=== PATIENT | male | born 1990 | race Caucasian/White ===

== ENCOUNTER 2021-03-17 16:48 | Emergency (ER) | payer MEDICAID ==
[~2021-03-17] VITALS: Ht 185.4 cm; Wt 109.1 kg
[2021-03-17 17:28] VITALS: BP 142/91
[2021-03-17 18:11] LABS: ALANINE AMINOTRANSFERASE 40 U/L (12-78); ALBUMIN 4.7 G/DL (3.4-5.0); ALBUMIN/GLOBULIN RATIO 1.1 (1.1-1.5); ALKALINE PHOSPHATASE 57 IU/L (46-116); AMYLASE 37 U/L (25-115); ANION GAP 13 (8-16); ASPARTATE AMINO TRANSFERASE 20 U/L (10-37); BILIRUBIN,TOTAL 0.5 MG/DL (0.1-1.0); BLOOD UREA NITROGEN 13 MG/DL (7-18); BUN/CREATININE RATIO 13.3 (5.4-32.0); CALCIUM 9.2 MG/DL (8.5-10.1); CHLORIDE 105 MMOL/L (99-107); CREATININE 0.98 MG/DL (0.60-1.10); GLUCOSE 132 MG/DL (70-104); LIPASE 95 U/L (73-393); POTASSIUM 3.3 MMOL/L (3.5-5.1); SODIUM 144 MMOL/L (135-145); TOTAL CARBON DIOXIDE 25.6 MMOL/L (24-32); TOTAL PROTEIN 8.8 G/DL (6.4-8.2); eGFR 90 ML/MIN
[2021-03-17 18:22] LABS: BASOPHILS % (AUTO) 0.2 % (0-1); EOSINOPHILS % (AUTO) 0.2 % (0-6); HEMOGLOBIN 16.5 g/dl (14.0-17.9); LYMPHOCYTES # (AUTO) 0.9 X10'3 (1.1-4.8); LYMPHOCYTES % (AUTO) 7.9 % (21-51); MEAN CORPUSCULAR HEMOGLOBIN 31.3 PG (27.0-31.0); MEAN CORPUSCULAR HGB CONC 33.7 g/dL (33.0-36.5); MEAN CORPUSCULAR VOLUME 92.9 FL (78-98); MEAN PLATELET VOLUME 7.2 FL (7.4-10.4); MONOCYTES # (AUTO) 0.5 X10'3 (0-0.9); MONOCYTES % (AUTO) 4.6 % (2-12); NEUTROPHILS # (AUTO) 9.6 X10'3 (1.8-7.7); NEUTROPHILS % (AUTO) 87.1 % (42-75); PLATELET COUNT 334 X10'3 (140-440); RED BLOOD COUNT 5.27 X10'6 (4.70-6.10); RED CELL DISTRIBUTION WIDTH 13.2 % (11.5-14.5)
[2021-03-17 18:32] LABS: CLARITY,URINE CLOUDY (Clear); COLOR,URINE Yellow (Yellow); PH,URINE 8.5 (4.8-8.0); PROTEIN,URINE 30 mg/dl (Neg); UA COLLECTION TYPE CLN CATCH MIDSTREAM
[2021-03-17 18:33] LABS: GLUCOSE, URINE NEGATIVE (Neg); KETONES,URINE >=160 mg/dl (Neg); LEUKOCYTE ESTERASE ,URINE NEGATIVE (Neg); NITRITES, URINE NEGATIVE (Neg); OCCULT BLOOD,URINE NEGATIVE (Neg); UROBILINOGEN,URINE 0.2 E.U/dL (0.2-1.0)
[2021-03-17 18:40] LABS: RBC,URINE 0-2 /HPF (0-2); WBC,URINE 0-4 /HPF (0-4)
[2021-03-17 18:41] LABS: AMORPHOUS PHOSPHATES 3+; BACTERIA,URINE FEW /HPF (Neg); SQUAMOUS EPITHELIAL CELL,UR FEW /LPF (FEW)
--- NOTE | 2021-03-17 22:07 | NUR ---
pt left due to wait time
== END 2021-03-17 22:07 | disposition left against medical advice (07) ==
LOC: ER 16:49
DX: R10.13 Epigastric pain (principal); Z53.21 Procedure and treatment not carried out due to patient leaving prior to being seen by health care provider
CPT/HCPCS: 36415; 80053; 81001; 82150; 83690; 85025

== ENCOUNTER 2021-08-09 00:29 | Inpatient (IN) | payer MEDICAID ==
[~2021-08-09] VITALS: Ht 185.4 cm; Wt 111.4 kg
[2021-08-09] MEDS ORDERED: normal saline 1000ML IV soln IVB ONE ×2 (00:35→03:05)
[2021-08-09 01:00] LABS: BASOPHILS % (AUTO) 0.2 % (0-1); EOSINOPHILS # (AUTO) 0.1 X10'3 (0-0.9); EOSINOPHILS % (AUTO) 0.5 % (0-6); HEMATOCRIT 47.1 % (42.0-52.0); HEMOGLOBIN 16.5 g/dl (14.0-17.9); LYMPHOCYTES # (AUTO) 1.8 X10'3 (1.1-4.8); LYMPHOCYTES % (AUTO) 12.8 % (21-51); MEAN CORPUSCULAR HEMOGLOBIN 31.4 PG (27.0-31.0); MEAN CORPUSCULAR VOLUME 89.5 FL (78-98); MONOCYTES # (AUTO) 1.2 X10'3 (0-0.9); MONOCYTES % (AUTO) 8.7 % (2-12); NEUTROPHILS % (AUTO) 77.8 % (42-75); PLATELET COUNT 297 X10'3 (140-440); RED BLOOD COUNT 5.26 X10'6 (4.70-6.10); RED CELL DISTRIBUTION WIDTH 12.8 % (11.5-14.5); WHITE BLOOD COUNT 14.1 X10'3 (4.5-11.0)
[2021-08-09 01:11] LABS: D-DIMER 1.24 MG/L FEU (0-0.50)
[2021-08-09 01:15] LABS: ALANINE AMINOTRANSFERASE 522 U/L (12-78); ALBUMIN 3.9 G/DL (3.4-5.0); ALKALINE PHOSPHATASE 88 IU/L (46-116); ANION GAP 13 (8-16); ASPARTATE AMINO TRANSFERASE 407 U/L (10-37); BILIRUBIN,TOTAL 10.2 MG/DL (0.1-1.0); BLOOD UREA NITROGEN 13 MG/DL (7-18); BUN/CREATININE RATIO 15.7 (5.4-32.0); CALCIUM 9.2 MG/DL (8.5-10.1); CHLORIDE 104 MMOL/L (99-107); CREATININE 0.83 MG/DL (0.60-1.10); GLUCOSE 121 MG/DL (70-104); POTASSIUM 3.5 MMOL/L (3.5-5.1); SODIUM 144 MMOL/L (135-145); TOTAL CARBON DIOXIDE 27.4 MMOL/L (24-32); eGFR > 90 ML/MIN
[2021-08-09 01:22] LABS: ETHANOL < 0.010 GM/DL (0.0-0.010); MAGNESIUM 2.5 MG/DL (1.5-2.4)
[2021-08-09 01:43] LABS: ALBUMIN/GLOBULIN RATIO 1.1 (1.1-1.5); TOTAL PROTEIN 7.6 G/DL (6.4-8.2)
[2021-08-09 02:05] LABS: LIPASE 25537 U/L (73-393)
[2021-08-09 02:07] LABS: URINE AMPHETAMINE SCREEN NEGATIVE (Neg); URINE BARBITUATE SCREEN NEGATIVE (Neg); URINE BENZODIAZEPINES SCREEN NEGATIVE (Neg); URINE CANNABINOID SCREEN NEGATIVE (Neg); URINE COCAINE SCREEN NEGATIVE (Neg); URINE METHADONE SCREEN NEGATIVE (Neg); URINE OPIATE SCREEN NEGATIVE (Neg); URINE PHENCYCLIDINE SCREEN NEGATIVE (Neg)
[2021-08-09 02:26] LABS: CLARITY,URINE CLEAR (Clear); GLUCOSE, URINE NEGATIVE (Neg); KETONES,URINE TRACE mg/dl (Neg); LEUKOCYTE ESTERASE ,URINE NEGATIVE (Neg); OCCULT BLOOD,URINE NEGATIVE (Neg); PROTEIN,URINE TRACE mg/dl (Neg)
[2021-08-09 02:27] LABS: COLOR,URINE AMBER (Yellow); NITRITES, URINE NEGATIVE (Neg); UA COLLECTION TYPE URINAL
[2021-08-09 02:33] LABS: HYALINE CASTS 0-3 /LPF (NEGATIVE); MUCUS STRANDS MANY /LPF (Neg)
[2021-08-09 02:35] LABS: FINE GRANULAR CAST 0-3 /LPF (NEGATIVE); RBC,URINE NONE SEEN /HPF (0-2); WBC,URINE 0-4 /HPF (0-4)
[2021-08-09 02:36] LABS: AMORPHOUS PHOSPHATES 1+; SQUAMOUS EPITHELIAL CELL,UR NONE SEEN /LPF (FEW)
[2021-08-09 02:37] LABS: BACTERIA,URINE NONE SEEN /HPF (Neg)
[2021-08-09] MEDS ORDERED: meperidine/PF 50mg/ml syringe IV ONE (03:05)
[2021-08-09] MEDS ORDERED: ondansetron/PF 4mg/2ml inj IV ONE (03:20)
[2021-08-09] MEDS ORDERED: magnesium Cl slow-release 64mg tablet PO PRN (03:30)
[2021-08-09] MEDS ORDERED: morphine 2 MG/ML inj. syringe IV PRN ×2 (03:30)
[2021-08-09] MEDS ORDERED: magnesium 2GM in 50ml NS 50 ML IV PRN (03:30)
[2021-08-09] MEDS ORDERED: ondansetron 4mg rapidly disintigrating tab PO PRN (03:30)
[2021-08-09] MEDS ORDERED: potassium Cl 20 mEq SR tablet PO PRN ×2 (03:30)
[2021-08-09] MEDS ORDERED: potassium CL 10mEq/100ml bag 100 ML IV PRN (03:30)
[2021-08-09] MEDS ORDERED: bisacodyl 10mg suppository rectal RC PRN (03:30)
[2021-08-09] MEDS ORDERED: ondansetron/PF 4mg/2ml inj IV PRN (03:30)
[2021-08-09] MEDS ORDERED: mag hydrox/Alum hydrox/simeth 30ml oral suspension PO PRN (03:30)
[2021-08-09] MEDS ORDERED: acetaminophen 650mg rectal suppository RC PRN (03:30)
[2021-08-09] MEDS ORDERED: magnesium hydroxide 30ml (MOM) UD suspension PO PRN (03:30)
[2021-08-09] MEDS ORDERED: diphenhydrAMINE 50 mg/ml inj IV PRN (03:30)
[2021-08-09] MEDS ORDERED: HYDROcodone/acetaminophen 5mg/325mg tablet PO PRN (03:30)
[2021-08-09] MEDS: dextrose 5%-1/2 normal saline 1,000 ML IV SCH ×4 (03:30→23:30)
[2021-08-09] MEDS ORDERED: HYDROmorphone inj. 0.5 MG/0.5 ML DISP.SYRIN IV PRN (03:30)
[2021-08-09] MEDS ORDERED: magnesium 4gm in 100ml NS 100 ML IV PRN (03:30)
[2021-08-09] MEDS ORDERED: acetaminophen 325mg tablet PO PRN ×2 (03:30)
[2021-08-09] MEDS ORDERED: diphenhydrAMINE 25mg capsule PO PRN (03:30)
[2021-08-09] MEDS ORDERED: HYDROcodone/acetaminophen 10/325mg tab PO PRN (03:30)
[2021-08-09 04:11] LABS: HEMOGLOBIN A1C 5.8 % (4.5-6.2)
[2021-08-09 04:20] LABS: CREATINE KINASE 82 U/L (39-308)
[2021-08-09 04:21] LABS: PHOSPHORUS 3.2 MG/DL (2.3-4.5)
--- NOTE | 2021-08-09 04:21 | NUR ---
Patient in room ED 7. I have received report from FLORESITA Mejia and had the opportunity to ask questions and assume patient care.
--- NOTE | 2021-08-09 04:30 | NUR ---
pt arrived via wheelchair from ER. Walked to the bed from the hallway.
[2021-08-09 04:35] VITALS: BP 125/86
[2021-08-09] MEDS ORDERED: NO HOME MEDS (05:29)
--- NOTE | 2021-08-09 06:21 | NUR ---
Patient in room [facility]. I have received report from Tameka CANAS and had the opportunity to ask questions and assume patient care.
--- NOTE | 2021-08-09 06:31 | NUR ---
Problems reprioritized. Patient report given, questions answered & plan of care reviewed with FLORESITA Ontiveros.
[2021-08-09 06:38] LABS: APTT 25 SECONDS (22-32)
[2021-08-09 07:00] VITALS: BP 110/77
[2021-08-09] MEDS: piperacillin/tazo 3.375gm/50ml 50 ML IV SCH ×2 (08:00→19:08)
[2021-08-09] MEDS: K and/or MAG REPLACEMENT MC SCH ×2 (08:00→19:29)
[2021-08-09] MEDS ORDERED: piperacillin/tazo 3.375gm/50ml 50 ML IV SCH (08:00)
[2021-08-09] MEDS: docusate sod 100mg capsule PO SCH ×2 (08:24→19:25)
[2021-08-09] MEDS: heparin, porcine 5000 units/ml vial SQ SCH ×2 (08:24→19:25)
[2021-08-09] MEDS: pantoprazole 40MG/NS 100ML BAG 100 ML IV SCH (08:24)
[2021-08-09] MEDS ORDERED: sincalide inj 2.2 MCG in normal saline 100ml IV soln 100 ML IV PRN (09:20)
[2021-08-09 11:00] VITALS: BP 131/80
--- NOTE | 2021-08-09 11:24 | NUR ---
ELISSA hurtado approached me, she said that we do not have the medication we need to do the HIDA scan so we could not do it today but tomorrow.
--- NOTE | 2021-08-09 14:00 | NUR ---
Paged Dr. Michel [facility] RN ext [phone] RE: Juan Rinaldi. Patient just had MRCP done, HIDA scan cannot be done today but will be done tomorrow instead.
--- NOTE | 2021-08-09 15:15 | NUR ---
Per Dr. Michel, we do not need to do the HIDA scan tomorrow. Addendum: 08/09/21 at 1520 by Bakari Paulino RN Dr. Michel told me that we do not need the HIDA scan tomorrow when I asked him if he wants patient to be NPO after midnight since HIDA scan is scheduled for tomorrow. He said he would put the order for the clear liquid diet.
--- NOTE | 2021-08-09 18:04 | NUR ---
I called pharmacy (this is the second time) requesting for the Zosyn IV due at 16:00. The tech said they will have to make one.
--- NOTE | 2021-08-09 18:20 | NUR ---
Patient in room [facility]. I have received report from FLROESITA Ontiveros and had the opportunity to ask questions and assume patient care.
[2021-08-09 19:00] VITALS: BP 117/73
[2021-08-09] MEDS ORDERED: temazepam 15mg capsule PO PRN (21:00)
[2021-08-10 00:01] VITALS: BP 108/68
[2021-08-10] MEDS: piperacillin/tazo 3.375gm/50ml 50 ML IV SCH ×3 (00:27→16:05)
--- NOTE | 2021-08-10 06:03 | NUR ---
Problems reprioritized. Patient report given, questions answered & plan of care reviewed with FLORESITA Liao.
[2021-08-10] MEDS: dextrose 5%-1/2 normal saline 1,000 ML IV SCH ×3 (06:10→15:39)
[2021-08-10 06:31] LABS: BASOPHILS # (AUTO) 0.1 X10'3 (0-0.2); BASOPHILS % (AUTO) 0.4 % (0-1); EOSINOPHILS # (AUTO) 0.1 X10'3 (0-0.9); EOSINOPHILS % (AUTO) 1.1 % (0-6); HEMATOCRIT 43.2 % (42.0-52.0); HEMOGLOBIN 14.6 g/dl (14.0-17.9); LYMPHOCYTES # (AUTO) 2.1 X10'3 (1.1-4.8); LYMPHOCYTES % (AUTO) 15.8 % (21-51); MEAN CORPUSCULAR HEMOGLOBIN 30.5 PG (27.0-31.0); MEAN CORPUSCULAR HGB CONC 33.8 g/dL (33.0-36.5); MEAN CORPUSCULAR VOLUME 90.3 FL (78-98); MEAN PLATELET VOLUME 7.1 FL (7.4-10.4); MONOCYTES # (AUTO) 1.2 X10'3 (0-0.9); MONOCYTES % (AUTO) 9.2 % (2-12); NEUTROPHILS # (AUTO) 9.9 X10'3 (1.8-7.7); NEUTROPHILS % (AUTO) 73.5 % (42-75); PLATELET COUNT 254 X10'3 (140-440); RED BLOOD COUNT 4.79 X10'6 (4.70-6.10); RED CELL DISTRIBUTION WIDTH 12.8 % (11.5-14.5); WHITE BLOOD COUNT 13.5 X10'3 (4.5-11.0)
[2021-08-10 06:47] LABS: ALANINE AMINOTRANSFERASE 429 U/L (12-78); ALBUMIN 3.1 G/DL (3.4-5.0); ALKALINE PHOSPHATASE 81 IU/L (46-116); ANION GAP 9 (8-16); ASPARTATE AMINO TRANSFERASE 173 U/L (10-37); BILIRUBIN,TOTAL 4.2 MG/DL (0.1-1.0); BLOOD UREA NITROGEN 11 MG/DL (7-18); BUN/CREATININE RATIO 12.8 (5.4-32.0); CALCIUM 8.8 MG/DL (8.5-10.1); CHLORIDE 102 MMOL/L (99-107); CREATININE 0.86 MG/DL (0.60-1.10); GLUCOSE 100 MG/DL (70-104); HDL CHOLESTEROL 28 MG/DL (35-60); LDL CHOLESTEROL 97 MG/DL (50-100); LIPASE 744 U/L (73-393); POTASSIUM 3.8 MMOL/L (3.5-5.1); SODIUM 137 MMOL/L (135-145); eGFR > 90 ML/MIN
[2021-08-10 06:49] LABS: ALBUMIN/GLOBULIN RATIO 0.9 (1.1-1.5); CHOL/HDL RATIO 5.3 (0.00-4.99); CHOLESTEROL 147 MG/DL (0-200); TOTAL PROTEIN 6.6 G/DL (6.4-8.2); TRIGLYCERIDES 134 MG/DL (20-135)
--- NOTE | 2021-08-10 06:50 | NUR ---
Patient in room [facility]. I have received report from Tameka CANAS and had the opportunity to ask questions and assume patient care.
[2021-08-10] MEDS: K and/or MAG REPLACEMENT MC SCH ×2 (06:51→20:00)
[2021-08-10 07:00] VITALS: BP 119/65
[2021-08-10] MEDS: pantoprazole 40MG/NS 100ML BAG 100 ML IV SCH (08:14)
[2021-08-10] MEDS: docusate sod 100mg capsule PO SCH ×2 (08:14→20:11)
[2021-08-10] MEDS: heparin, porcine 5000 units/ml vial SQ SCH ×2 (08:14→20:12)
--- NOTE | 2021-08-10 09:22 | NUR ---
Per Dr Luque ok for patient to be discharged today and have him call Dr Luque office on Wednesday and advise patient to have Surgery on Wednesday for Cholecystectomy. Patient is to refrain from a high fat diet for now.
[2021-08-10 11:00] VITALS: BP 130/80
--- NOTE | 2021-08-10 18:06 | NUR ---
Problems reprioritized. Patient report given, questions answered & plan of care reviewed with pari.
--- NOTE | 2021-08-10 18:20 | NUR ---
Patient in room [facility]. I have received report from PATIENCE CANAS and had the opportunity to ask questions and assume patient care.
[2021-08-10 20:00] VITALS: BP 100/64
[2021-08-10 23:39] VITALS: BP 103/67
[2021-08-11] MEDS: piperacillin/tazo 3.375gm/50ml 50 ML IV SCH ×2 (00:41→07:51)
[2021-08-11] MEDS: dextrose 5%-1/2 normal saline 1,000 ML IV SCH ×2 (00:43→08:50)
--- NOTE | 2021-08-11 06:20 | NUR ---
Problems reprioritized. Patient report given, questions answered & plan of care reviewed with ALBERT CANAS.
[2021-08-11 06:21] LABS: BASOPHILS % (AUTO) 0.3 % (0-1); EOSINOPHILS # (AUTO) 0.2 X10'3 (0-0.9); EOSINOPHILS % (AUTO) 1.5 % (0-6); HEMATOCRIT 43.2 % (42.0-52.0); HEMOGLOBIN 14.3 g/dl (14.0-17.9); LYMPHOCYTES # (AUTO) 1.7 X10'3 (1.1-4.8); LYMPHOCYTES % (AUTO) 13.8 % (21-51); MEAN CORPUSCULAR HEMOGLOBIN 30.2 PG (27.0-31.0); MEAN CORPUSCULAR HGB CONC 33.1 g/dL (33.0-36.5); MEAN CORPUSCULAR VOLUME 91.2 FL (78-98); MEAN PLATELET VOLUME 7.6 FL (7.4-10.4); MONOCYTES # (AUTO) 1.4 X10'3 (0-0.9); MONOCYTES % (AUTO) 11.3 % (2-12); NEUTROPHILS # (AUTO) 9.1 X10'3 (1.8-7.7); NEUTROPHILS % (AUTO) 73.1 % (42-75); PLATELET COUNT 256 X10'3 (140-440); RED BLOOD COUNT 4.74 X10'6 (4.70-6.10); RED CELL DISTRIBUTION WIDTH 12.8 % (11.5-14.5); WHITE BLOOD COUNT 12.4 X10'3 (4.5-11.0)
--- NOTE | 2021-08-11 06:26 | NUR ---
Patient in room [facility]. I have received report from MARLEEN CANAS and had the opportunity to ask questions and assume patient care.
[2021-08-11 06:39] LABS: ALANINE AMINOTRANSFERASE 328 U/L (12-78); ALBUMIN 3.1 G/DL (3.4-5.0); ALBUMIN/GLOBULIN RATIO 0.8 (1.1-1.5); ALKALINE PHOSPHATASE 75 IU/L (46-116); ANION GAP 11 (8-16); ASPARTATE AMINO TRANSFERASE 75 U/L (10-37); BILIRUBIN,TOTAL 1.7 MG/DL (0.1-1.0); BLOOD UREA NITROGEN 6 MG/DL (7-18); BUN/CREATININE RATIO 7.9 (5.4-32.0); CALCIUM 8.8 MG/DL (8.5-10.1); CHLORIDE 102 MMOL/L (99-107); CREATININE 0.76 MG/DL (0.60-1.10); GLUCOSE 92 MG/DL (70-104); LIPASE 232 U/L (73-393); POTASSIUM 3.7 MMOL/L (3.5-5.1); SODIUM 140 MMOL/L (135-145); TOTAL CARBON DIOXIDE 26.8 MMOL/L (24-32); eGFR > 90 ML/MIN
[2021-08-11] MEDS: K and/or MAG REPLACEMENT MC SCH (07:05)
[2021-08-11 07:38] VITALS: BP 106/54
[2021-08-11] MEDS: pantoprazole 40MG/NS 100ML BAG 100 ML IV SCH (07:51)
[2021-08-11] MEDS: heparin, porcine 5000 units/ml vial SQ SCH (07:51)
[2021-08-11] MEDS: docusate sod 100mg capsule PO SCH (07:51)
[2021-08-11] MEDS ORDERED: AMOX-580 PO ×2 (09:00)
--- NOTE | 2021-08-11 12:08 | NUR ---
discharged, PIV removed, ambulated with PCT to Lobby
[2021-08-12] MEDS ORDERED: NO HOME MEDS (12:50)
== END 2021-08-11 11:38 | disposition home or self-care (01) ==
LOC: ER 00:29 → ED HOLD 03:39 → SUR 3N 04:30
PROVIDERS: ADMIT Family Medicine; ATTEND Family Medicine
DX: K80.00 Calculus of gallbladder with acute cholecystitis without obstruction (principal); K85.10 Biliary acute pancreatitis without necrosis or infection; K76.0 Fatty (change of) liver, not elsewhere classified; E86.0 Dehydration; I10 Essential (primary) hypertension; R07.81 Pleurodynia; R82.4 Acetonuria; R74.01 Elevation of levels of liver transaminase levels
CPT/HCPCS: 36415; 71045; 74176; 74181; 76700; 80053; 80061; 80305; 80320; 81001; 82550; 83036; 83605; 83690; 83735; 83880; 84100; 84443; 84484; 85025; 85379; 85610; 85730; 87040; 87081; 93005; 96374; 96375; 99285; C9113; G0378; J1644; J2175; J2405; J2543; J7030; J7042

== ENCOUNTER 2021-08-13 08:51 | Day surgery (SDC) | payer MEDICAID ==
[~2021-08-13] VITALS: Ht 185.4 cm; Wt 111.0 kg
[2021-08-13] VITALS (14 sets, daily range): BP systolic 130–147; BP diastolic 82–99
[~2021-08-13 08:51] MED LIST: NO HOME MEDS; ceFOXitin 2GM-NS 100mL ADDvant 100 ML IV ONE; famotidine 20mg tablet PO ONE; ringers solution, lacted 1,000 ML IV SCH
--- NOTE | 2021-08-13 11:38 | NUR ---
PATIENT HAD A SLIGHTLY ELEVATED TEMP ON ARRIVAL (99.2)....RECHECKED AT 1138 AFTER SITTING UP, COUGHING, AND DEEP BREATHING (98.2) Addendum: 08/13/21 at 1153 by Jacque Wolf RN Amended: Links added.
[2021-08-13] MEDS ORDERED: BUPIVAcaine 0.5% inj/PF 30 ML ONE (11:43)
[2021-08-13] MEDS ORDERED: midazolam 1 mg/ML 2ml injection ONE (12:45)
[2021-08-13] MEDS ORDERED: FENTANYL CITRATE/PF 50 MCG/1 ML VIAL ONE ×2 (12:45→13:15)
[2021-08-13] MEDS ORDERED: LIDOcaine 2% (20mg/ml) 5ml vial ONE (13:17)
[2021-08-13] MEDS ORDERED: ondansetron/PF 4mg/2ml inj ONE (13:17)
[2021-08-13] MEDS ORDERED: glycopyrrolate 0.2mg/ml inj ONE (13:17)
[2021-08-13] MEDS ORDERED: propofol inj 20 ML IV ONE (13:17)
[2021-08-13] MEDS ORDERED: dexamethasone sod phosphate 4mg/ml inj. ONE (13:17)
[2021-08-13] MEDS ORDERED: rocuronium 10mg/ml inj IV ONE (13:17)
[2021-08-13] MEDS ORDERED: neostigmine methylsulfate 1 MG/ML 10ml vial ONE (13:17)
[2021-08-13] MEDS ORDERED: meperidine/PF 25mg/ml syringe ONE (13:51)
--- NOTE | 2021-08-13 13:53 | NUR ---
Received from OR Juan , accompanied by Anesthesiologist DR ANDRES and report given by Anesthesiolgist. PT PRESENTS WITH 20 G LEFT HAND, ABD DRESSING STERI STRIPS CLEAN DRY AND INTACT, VSS. Addendum: 08/13/21 at 1404 by Florencia Quiroz RN, RN Amended: Links added.
[2021-08-13] MEDS ORDERED: ondansetron/PF 4mg/2ml inj IV PRN (14:05)
[2021-08-13] MEDS ORDERED: morphine 4 MG/ML inj SYRINge IV PRN (14:05)
[2021-08-13] MEDS ORDERED: meperidine/PF 25mg/ml syringe IV PRN ×3 (14:05)
[2021-08-13] MEDS ORDERED: proCHLORperazine 10 MG/2 ml inj IV PRN (14:05)
[2021-08-13] MEDS ORDERED: morphine 2 MG/ML inj. syringe IV PRN (14:05)
[2021-08-13] MEDS ORDERED: ringers solution, lacted 1,000 ML IV SCH (14:05)
[2021-08-13] MEDS ORDERED: HYDROcodone/acetaminophen 10/325mg tab PO ONE (15:10)
--- NOTE | 2021-08-13 15:33 | NUR ---
PATIENT DISCHARGED FROM PACU IN STABLE CONDITION AFTER WRITTEN AND VERBAL DISCHARGE INSTRUCTIONS GIVEN. PATIENT GAVE VERBAL UNDERSTANDING OF INSTRUCTIONS GIVEN. PATIENT LEFT FACILITY VIA WHEELCHAIR WITH RN. Addendum: 08/13/21 at 1607 by Florencia Quiroz RN RN Amended: Links added.
== END 2021-08-13 15:33 | disposition home or self-care (01) ==
LOC: PRE-OP 08:51
PROVIDERS: ATTEND Surgery
DX: K80.12 Calculus of gallbladder with acute and chronic cholecystitis without obstruction (principal); K85.10 Biliary acute pancreatitis without necrosis or infection; K76.0 Fatty (change of) liver, not elsewhere classified; I10 Essential (primary) hypertension; Z72.89 Other problems related to lifestyle; Z20.822 Contact with and (suspected) exposure to COVID-19
CPT/HCPCS: 47562; 82948; 87635; C9803; J0694; J1100; J2175; J2250; J2405; J2704; J2710; J3010; J3490; J7030; J7120; S0020; Z7506; Z7508; Z7512; A4215; A4618; A7000